=== PATIENT | female | born 1960 | race African-American/Black ===

== ENCOUNTER 2017-05-18 09:51 | Emergency (ER) | payer MEDICAID, OTHER ==
[~2017-05-18] VITALS: Ht 165.1 cm; Wt 84.0 kg
[2017-05-18] MEDS ORDERED: KETOROLAC 30MG/ML VIAL IV ONE (10:45)
[2017-05-18] MEDS ORDERED: TRAMADOL 50MG TABLET PO ONE (10:45)
[2017-05-18] MEDS ORDERED: LISINOPRIL 10MG TABLET PO ONE (11:00)
[2017-05-18] MEDS ORDERED: AMLODIPINE 10MG TABLET PO ONE (11:00)
[2017-05-18 12:45] VITALS: BP 176/99
== END 2017-05-18 12:58 | disposition home or self-care (01) ==
LOC: ER 10:52
DX: M17.9 Osteoarthritis of knee, unspecified (principal); I10 Essential (primary) hypertension; Z91.14 Patient's other noncompliance with medication regimen; Z90.710 Acquired absence of both cervix and uterus
CPT/HCPCS: 96374; 99284; J1885; Z7610

== ENCOUNTER 2017-07-03 13:14 | Emergency (ER) | payer MEDICAID, OTHER ==
[~2017-07-03] VITALS: Ht 157.5 cm; Wt 90.0 kg
[2017-07-03] MEDS ORDERED: KETOROLAC 60MG/2ML VIAL IM ONE (14:45)
[2017-07-03] MEDS ORDERED: LISINOPRIL 10MG TABLET PO ONE (15:15)
[2017-07-03] MEDS ORDERED: AMLODIPINE 10MG TABLET PO ONE (15:15)
[2017-07-03 15:45] VITALS: BP 234/134
== END 2017-07-03 17:20 | disposition home or self-care (01) ==
LOC: ER 13:14
DX: M25.562 Pain in left knee (principal); M25.561 Pain in right knee; I10 Essential (primary) hypertension
CPT/HCPCS: 93005; 96372; 99283; J1885